=== PATIENT | female | born 1960 | race African-American/Black ===

== ENCOUNTER → 2017-08-24 | Emergency (ER) | payer OTHER ==
[~2017-08-24] VITALS: Ht 162.6 cm; Wt 142.9 kg
[~2017-08-24] MED LIST: ADULT WAL-100 MG/5 M ORAL; IBUPROFEN400 M1 PO; LIDOCAINE700 M1 TP
[2017-08-24 13:40] VITALS: BP 127/74
--- NOTE | 2017-08-27 08:32 | Emergency Room Report ---
History of Present Illness General Chief Complaint: Pain Source: Patient Present Illness HPI Patient is a 57-year-old female presented after increased bilateral lower extremity pain. Patient prior history of chronic and ankle pain. 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 She reportedly had not been able to see her pain management doctor. She reports having some worsening her chronic pain. Patient states she's been out of medications for some time. She prior history of morbid obesity. Allergies: Coded Allergies: DIPHENHYDRAMINE (Verified Allergy, Unknown, 08/24/17) Patient History Past Medical History: see triage record Last Menstrual Period: 2016 Now: No Reviewed Nursing Documentation: PMH: Agreed, PSxH: Agreed Nursing Documentation-PMH Hx Cardiac Problems: No - MORBID OBESITY HERNIAS ARTHRITIS Review of Systems All Other Systems: negative except mentioned in HPI Physical Exam Vital Signs Date Time Temp Pulse Resp B/P (MAP) Pulse Ox O2 Delivery O2 Flow Rate FiO2 08/24/17 13:40 97.7 84 22 127/74 96 Room Air General Appearance: well appearing, no apparent distress, alert, GCS 15, obese Head: normocephalic, atraumatic ENT: hearing grossly normal, normal voice Neck: full range of motion, supple Respiratory: no respiratory distress, speaking full sentences Cardiovascular #1: normal inspection, regular rate, rhythm Gastrointestinal: normal inspection Musculoskeletal: normal inspection, back normal, no calf tenderness Neurologic: normal inspection, alert, oriented x3, responsive, normal gait Psychiatric: mood/affect normal Skin: no rash Medical Decision Making Diagnostic Impression: Primary Impression: Chronic pain Additional Impression: Upper respiratory infection ER Course Patient presented for ankle pain. Differential diagnosis included was not limited to sprain, fracture, arthritis, dislocation, cellulitis, vascular insufficiency. Patient's benign exam and does not appear to require any further imaging or laboratory testing at this time. Patient appears to have a viral upper respiratory infection. Patient appears to have chronic pain. she was given lidocaine patch. The patient was advised that long-term use of opiate medications will increase her pain in the long-term The patient is advised to follow up with primary care doctor in 1-2 days. Patient is advised to return if any worsening condition or if any changes in status that are concerning. This report is dictated with [employer] and hand packager software which may occasionally lead to discrepancies related to use of this software. Last Vital Signs Date Time Temp Pulse Resp B/P (MAP) Pulse Ox O2 Delivery O2 Flow Rate FiO2 08/24/17 13:40 97.7 84 22 127/74 96 Room Air Disposition: HOME, SELF-CARE Condition: Stable Scripts Guaifenesin* (ADULT LALY-GABRIELA*) 100 Mg/5 Ml Liquid 10 ML ORAL Q4H, #120 ML Prov: Azeem Garcia 08/24/17 Ibuprofen (Ibuprofen) 400 Mg Tablet 400 MG PO EVERY 8 HOURS, #30 TAB Prov: Azeem Garcia 08/24/17 Lidocaine (Lidocaine) 1 Each Adh..patch 700 MG TP EVERY 12 HOURS for For Pain, #30 PATCH Prov: Azeem Garcia 08/24/17 Referrals: NON PHYSICIAN (PCP) Patient Instructions: Upper Respiratory Infection, Adult, Chronic Pain Azeem Garcia Aug 27, 2017 08:32
== END | disposition home or self-care (01) ==
LOC: EMR 15:05
DX: G89.29 Other chronic pain (principal); J06.9 Acute upper respiratory infection, unspecified; M19.90 Unspecified osteoarthritis, unspecified site; Z88.8 Allergy status to other drugs, medicaments and biological substances; E66.01 Morbid (severe) obesity due to excess calories; Z68.43 Body mass index [BMI] 50.0-59.9, adult
CPT/HCPCS: 99283